=== PATIENT | female | born 1985 | race Native Hawaiian/Other Pacific Islander ===

== ENCOUNTER 2017-09-07 11:49 | Observation (INO) | payer SELFPAY ==
[~2017-09-07] VITALS: Ht 162.6 cm; Wt 70.4 kg
[2017-09-07 12:59] LABS: BASOPHILS ABSOLUTE AUTO 0.03 K/mm3 (0.00-0.23); BASOPHILS PERCENT AUTO 0 % (0-2); EOSINOPHILS ABSOLUTE AUTO 0.43 K/mm3 (0.00-0.68); EOSINOPHILS PERCENT AUTO 5 % (0-6); Hematocrit 41.7 % (33.0-51.0); IMMATURE GRAN ABSOLUTE AUTO 0.01 K/mm3 (0.00-0.10); IMMATURE GRAN PERCENT AUTO 0 % (0-1); LYMPHOCYTES ABSOLUTE AUTO 3.49 K/mm3 (0.84-5.20); LYMPHOCYTES PERCENT AUTO 36 % (21-46); MONOCYTES ABSOLUTE AUTO 0.65 K/mm3 (0.16-1.47); MONOCYTES PERCENT AUTO 7 % (4-13); Mean Corpuscular HGB 32.7 pg (26.0-34.0); Mean Corpuscular HGB Conc 33.6 g/dL (31.5-36.5); Mean Corpuscular Volume 97 fL (80-100); NEUTROPHILS PERCENT AUTO 52 % (41-73); Platelet Count 294 K/mm3 (150-400); RDW Standard Deviation 43.3 fL (35.1-46.3); Red Blood Cell Count 4.28 M/mm3 (3.80-5.20); White Blood Cell Count 9.61 K/mm3 (4.00-11.30)
[2017-09-07 13:13] LABS: Alanine Aminotransfer (ALT/SGP 21 U/L (12-78); Albumin, Blood 3.7 g/dL (3.4-5.0); Albumin/Globulin Ratio 0.9 (0.8-1.8); Alk Phos 49 U/L (50-136); Anion Gap 5 mmol/L (6-16); Aspartate Aminotrans (AST/SGOT 18 U/L (12-37); Bilirubin, Total 0.2 mg/dL (0.1-1.0); Blood Urea Nitrogen 10 mg/dL (8-24); Bun/Creatinine Ratio 14.8 (12.0-20.0); CO2, Blood 26 mmol/L (21-32); Calcium, Blood 8.8 mg/dL (8.5-10.1); Chloride, Blood 109 mmol/L (98-108); Creatinine, Blood 0.67 mg/dL (0.40-1.00); Globulin, Blood 3.9 g/dL (2.2-4.0); Glomerular Filtration Rate >60 (60-); Glucose, Blood 95 mg/dL (70-99); Potassium, Blood 3.9 mmol/L (3.5-5.5); Sodium, Blood 140 mmol/L (136-145); Total Protein, Blood 7.6 g/dL (6.4-8.2)
[2017-09-07] MEDS ORDERED: SUMA25 PO (15:22)
[2017-09-07 15:50] LABS: U Amphetamine Screen Not Detected; U Barbituate Screen Not Detected; U Benzodiazapine Screen Not Detected; U Buprenorphine Screen Not Detected; U Cannabinoids Screen DETECTED; U Cocaine Screen Not Detected; U Methadone Screen Not Detected; U Methamphetamine Screen Not Detected; U Opiates Screen Not Detected; U Oxycodone Screen Not Detected; U Phencyclidine Screen Not Detected; U Propoxyphene Screen Not Detected
[2017-09-07 16:07] LABS: Beta HCG, Quantitative, Serum <1 mIU/mL (0-3); Magnesium, Blood 1.9 mg/dL (1.6-2.4); Troponin I <0.015 ng/mL (0.000-0.040)
[2017-09-07 17:24] LABS: Source, Urine Clean Catch
[2017-09-07 17:32] LABS: Appearance, Urine Clear (Clear); Bilirubin, Urine Neg (Neg); Blood, Urine Neg (Neg); Color, Urine Yellow (P-Yellow); Glucose Qualitative, Urine Neg (Neg); Ketones, Urine Neg (Neg); Leukocyte Esterase, Urine Neg (Neg); Nitrite, Urine Neg (Neg); Protein, Urine Neg (Neg); Specific Gravity, Urine 1.025 (1.003-1.022); Urobilinogen, Urine NORM (Normal)
[2017-09-08] MEDS ORDERED: IBUP400 PO (14:18)
[2017-09-08] MEDS ORDERED: FLONASE ALLERG9.9 ML (14:19)
[2017-09-08] MEDS ORDERED: MECL12.5 PO (14:19)
[2017-09-08] MEDS ORDERED: GUAI600T33 PO (14:20)
[2017-09-08] MEDS ORDERED: LEVO750 PO (14:20)
[2017-09-08] MEDS ORDERED: ONDA4ODT MM (14:20)
== END 2017-09-08 19:32 | disposition home or self-care (01) ==
LOC: ER 11:49 → MEDS 11:50 → ER 18:37 → ENPENDDIS 09-08 13:00 → MEDS 09-08 19:32
PROVIDERS: Emergency Medicine
DX: R55 Syncope and collapse (principal); G43.909 Migraine, unspecified, not intractable, without status migrainosus; F17.210 Nicotine dependence, cigarettes, uncomplicated; J34.89 Other specified disorders of nose and nasal sinuses; Z79.899 Other long term (current) drug therapy; Z88.0 Allergy status to penicillin
CPT/HCPCS: 30901; 70553; 71046; 80053; 81003; 83735; 84443; 84484; 84702; 85025; 93005; 93010; 93306; 96360; 96361; 96372; 96374; 96376; 99285; A9577; G0378; J1650; J2405; J7120

== ENCOUNTER 2018-07-28 13:56 | Emergency (ER) | payer SELFPAY ==
[~2018-07-28] VITALS: Ht 162.6 cm; Wt 79.4 kg
[~2018-07-28 13:56] MED LIST: FLONASE ALLERG9.9 ML; GUAI600T33 PO; IBUP400 PO; LEVO750 PO; MECL12.5 PO; ONDA4ODT MM; SUMA25 PO
[2018-07-28] MEDS ORDERED: Cheratussin AC118 ML PO (15:13)
[2018-07-28] MEDS ORDERED: BENZ100A PO (15:13)
== END 2018-07-28 15:21 | disposition home or self-care (01) ==
LOC: ER 13:56
DX: J06.9 Acute upper respiratory infection, unspecified (principal); F17.200 Nicotine dependence, unspecified, uncomplicated; Z88.0 Allergy status to penicillin
CPT/HCPCS: 71046; 93005; 93010; 99283-25

== ENCOUNTER 2019-06-15 17:32 | Emergency (ER) | payer BC ==
[~2019-06-15] VITALS: Ht 162.6 cm; Wt 70.8 kg
[~2019-06-15 17:32] MED LIST changes: +BENZ100A PO; +Cheratussin AC118 ML PO
[2019-06-15] MEDS ORDERED: HYDR1TAB94 PO (19:28)
== END 2019-06-15 19:45 | disposition home or self-care (01) ==
LOC: ER 17:32
DX: H54.62 Unqualified visual loss, left eye, normal vision right eye (principal); G43.909 Migraine, unspecified, not intractable, without status migrainosus; F17.200 Nicotine dependence, unspecified, uncomplicated; Z88.0 Allergy status to penicillin; Z91.09 Other allergy status, other than to drugs and biological substances; Z79.899 Other long term (current) drug therapy
CPT/HCPCS: 70450; 99284-25

== ENCOUNTER 2019-06-16 09:32 | Emergency (ER) | payer BC ==
[~2019-06-16] VITALS: Ht 162.6 cm; Wt 70.8 kg
[~2019-06-16 09:32] MED LIST changes: +HYDR1TAB94 PO
== END 2019-06-16 14:32 | disposition home or self-care (01) ==
LOC: ER 09:32
DX: H54.62 Unqualified visual loss, left eye, normal vision right eye (principal); Z86.718 Personal history of other venous thrombosis and embolism; Z88.0 Allergy status to penicillin; Z91.09 Other allergy status, other than to drugs and biological substances
CPT/HCPCS: 70553; 99283-25; A9577

== ENCOUNTER 2020-10-11 21:32 | Emergency (ER) | payer BC ==
[~2020-10-11] VITALS: Ht 162.6 cm; Wt 77.1 kg
[2020-10-11] MEDS ORDERED: SERT50 PO (22:17)
[2020-10-11] MEDS ORDERED: TOPI100 PO (22:18)
[2020-10-11] MEDS ORDERED: CEPH500 PO (22:18)
== END 2020-10-11 22:52 | disposition home or self-care (01) ==
LOC: ER 21:32
DX: M25.512 Pain in left shoulder (principal); F17.200 Nicotine dependence, unspecified, uncomplicated; Z79.899 Other long term (current) drug therapy; Z88.0 Allergy status to penicillin; Z91.041 Radiographic dye allergy status; W10.9XXA Fall (on) (from) unspecified stairs and steps, initial encounter
CPT/HCPCS: 73030; 99283-25; A9270

== ENCOUNTER → 2021-01-08 | Outpatient (CLI) | payer BC ==
[~2021-01-08] MED LIST changes: +CEPH500 PO; +SERT50 PO; +TOPI100 PO
[2021-01-09 17:20] LABS: CORONAVIRUS (COVID19) CSH-NRL Negative (Negative)
== END ==
LOC: LAB 09:26 → LAB SHORT 09:26
PROVIDERS: Chiropractor
DX: Z01.812 Encounter for preprocedural laboratory examination (principal); Z20.822 Contact with and (suspected) exposure to COVID-19
CPT/HCPCS: U0003